=== PATIENT | female | born 1990 | race Caucasian/White ===

== ENCOUNTER → 2025-10-08 | Outpatient (CLI) | payer MEDICAID, SELFPAY ==
--- NOTE | 2025-10-08 14:41 | XR_ITS ---
Examination: Shoulder, right, 3 views Technique: Shoulder AP internal rotation, AP external rotation, Y view shoulder, 3 views Exam date and time : October 08, 2025, 1504 hours INDICATIONS: Patient fell last month with into the shoulder, shoulder pain. FINDINGS: No fracture or dislocation Mild narrowing glenohumeral joint No AC joint separation IMPRESSION: No shoulder fracture or dislocation
--- NOTE | 2025-10-08 14:43 | XR_ITS ---
Examination: Knee, right, 3 views Technique: Knee AP, lateral, oblique 3 views Date and time of exam: October 08, 2025, 1504 hours INDICATION: Patient fell 1 month ago with into the knee, knee pain. FINDINGS: No fracture or dislocation Mild to moderate narrowing medial joint space IMPRESSION: No fracture or dislocation
== END | disposition home or self-care (01) ==
LOC: CDIM 14:22
DX: S49.91XA Unspecified injury of right shoulder and upper arm, initial encounter (principal); S89.91XA Unspecified injury of right lower leg, initial encounter; W19.XXXA Unspecified fall, initial encounter
CPT/HCPCS: 73030; 73562